=== PATIENT | male | born 1990 | race Hispanic/Latino ===

== ENCOUNTER 2019-10-20 14:05 | Emergency (ER) | payer SELFPAY ==
[2019-10-20] MEDS ORDERED: TRAMADOL HCL 50 MG TAB ONE (15:15)
[2019-10-20] MEDS ORDERED: TETANUS & DIPHTHERIA TOX,ADULT 0.5 ML VIAL ONE (15:16)
[2019-10-20] MEDS ORDERED: HYDROMORPHONE HCL 1 MG/ML INJ ONE (16:01)
[2019-10-20] MEDS ORDERED: ONDANSETRON 4 MG/2 ML VIAL ONE (16:01)
--- NOTE | 2019-10-20 16:05 | RAD REPORT ---
EXAM DESCRIPTION: RAD - Hand Right 3 View - 10/20/2019 3:45 pm CLINICAL HISTORY: Right hand pain status post injury FINDINGS: Soft tissue amputation adjacent to the first terminal tuft No fracture or dislocation
--- NOTE | 2019-10-20 16:07 | EDPHYS ---
Physician Documentation [facility] Name: Severino Davidson Age: 29 yrs Sex: Male : 1990 Arrival Date: 10/20/2019 Time: 14:08 Bed 5 Private MD: ED Physician Srinivas Pena HPI: 10/19 16:03 This 29 yrs old Male presents to ER via Ambulatory with complaints of kb Laceration To Hand. 16:03 The patient has a laceration related to: working, occurred at work, and there are no kb complicating factors. The injury was accidental. The laceration(s) is(are) located on the right thumb. Onset: The symptoms/episode began/occurred just prior to arrival. Associated signs and symptoms: The patient has no apparent associated signs or symptoms. The patient has not experienced similar symptoms in the past. The patient has not recently seen a physician. Pt reports he cut the tip of his thumb off at work. Historical: - Allergies: 14:30 pain killers; sv ROS: 15:57 Constitutional: Negative for fever, chills, and weight loss, Cardiovascular: Negative kb for chest pain, palpitations, and edema, Respiratory: Negative for shortness of breath, cough, wheezing, and pleuritic chest pain, Abdomen/GI: Negative for abdominal pain, nausea, vomiting, diarrhea, and constipation, Back: Negative for injury and pain, Neuro: Negative for headache, weakness, numbness, tingling, and seizure. 15:57 Skin: Positive for avulsion, of the right thumb. Exam: 15:58 Constitutional: This is a well developed, well nourished patient who is awake, alert, kb and in no acute distress. Head/Face: Normocephalic, atraumatic. Chest/axilla: Normal chest wall appearance and motion. Nontender with no deformity. No lesions are appreciated. Cardiovascular: Regular rate and rhythm with a normal S1 and S2. No gallops, murmurs, or rubs. Normal PMI, no JVD. No pulse deficits. Respiratory: Lungs have equal breath sounds bilaterally, clear to auscultation and percussion. No rales, rhonchi or wheezes noted. No increased work of breathing, no retractions or nasal flaring. Abdomen/GI: Soft, non-tender, with normal bowel sounds. No distension or tympany. No guarding or rebound. No evidence of tenderness throughout. MS/ Extremity: Pulses equal, no cyanosis. Neurovascular intact. Full, normal range of motion. Neuro: Awake and alert, GCS 15, oriented to person, place, time, and situation. Cranial nerves II-XII grossly intact. Motor strength 5/5 in all extremities. Sensory grossly intact. Cerebellar exam normal. Normal gait. 15:58 Skin: injury, avulsion(s), A moderate sized of the right thumb, avulsion of tip of finger. Vital Signs: 14:31 BP 132 / 90; Pulse 88; Resp 16; Temp 98; Pulse Ox 100% ; Weight 104.33 kg; Height 5 ft. sv 11 in. (180.34 cm); 14:31 Body Mass Index 32.08 (104.33 kg, 180.34 cm) sv MDM: 14:57 Patient medically screened. kb 15:56 Data reviewed: vital signs, nurses notes. Data interpreted: Pulse oximetry: on room air kb is 100 %. Interpretation: normal. Counseling: I had a detailed discussion with the patient and/or guardian regarding: the historical points, exam findings, and any diagnostic results supporting the discharge/admit diagnosis, radiology results, the need for outpatient follow up, a family practitioner, to return to the emergency department if symptoms worsen or persist or if there are any questions or concerns that arise at home. 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 Exp: em 05/18/2021. Lot #: [id number]. } Route: IM; Site: left deltoid; 17:00 Follow up: Response: No adverse reaction em 15:12 Drug: traMADol 50 mg Route: PO; em 17:00 Follow up: Response: No adverse reaction em Disposition: 10/20 10:30 Co-signature as Attending Physician, Srinivas Pena MD I agree with the assessment and franco plan of care. Disposition: 10/20/19 16:06 Discharged to Home. Impression: Laceration without foreign body of right thumb with damage to nail - avulsion. - Condition is Stable. - Discharge Instructions: Deep Skin Avulsion. - Medication Reconciliation Form, Thank You Letter, Antibiotic Education, Prescription Opioid Use form. - Follow up: Emergency Department; When: As needed; Reason: Worsening of condition. Follow up: Private Physician; When: 2 - 3 days; Reason: Recheck today's complaints, Continuance of care, Re-evaluation by your physician. Signatures: Dispatcher [employer] EDRebekah Hirsch, ABEL-C TRIAGE REGISTER NURSE-Priscila Schroeder, JENNIFER RN Srinivas Bonilla MD MD cha Munoz, Edgar, RN RN em Corrections: (The following items were deleted from the chart) 10/19 17:07 16:06 10/20/2019 16:06 Discharged to Home. Impression: Laceration without foreign body em of right thumb with damage to nail - avulsion. Condition is Stable. Forms are Medication Reconciliation Form, Thank You Letter, Antibiotic Education, Prescription Opioid Use. Follow up: Emergency Department; When: As needed; Reason: Worsening of condition. Follow up: Private Physician; When: 2 - 3 days; Reason: Recheck today's complaints, Continuance of care, Re-evaluation by your physician. kb
--- NOTE | 2019-10-20 16:07 | ER ---
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 "I sv took a good chunk off of my thumb.". Coronavirus screen: Patient denies a cough. Patient denies shortness of breath or difficulty breathing. Patient denies measured and/or subjective temperature greater than 100.4F prior to today's visit. Patient denies travel on a cruise ship or to a country the [facility] currently lists as an affected area. Patient denies contact with known and/or suspected case of COVID-19. Proceed with normal triage. Ebola Screen: No symptoms or risks identified at this time. Complicating Factors: There are no complicating factors for this patient. Risk Assessment: Do you want to hurt yourself or someone else? Patient reports no desire to harm self or others. Onset of symptoms was October 20, 2019. 14:28 Method Of Arrival: Ambulatory sv 14:28 Acuity: PARAMJIT 2 sv 14:31 Initial Sepsis Screen: Does the patient meet any 2 criteria? No. Patient's initial sv sepsis screen is negative. Does the patient have a suspected source of infection? No. Patient's initial sepsis screen is negative. Triage Assessment: 14:28 General: Appears in no apparent distress. uncomfortable, Behavior is calm, cooperative, sv appropriate for age. Pain: Complains of pain in right thumb. Neuro: Level of Consciousness is awake, alert, obeys commands, Oriented to person, place, time, situation, Gait is steady. Respiratory: Respiratory effort is even, unlabored. Historical: - Allergies: 14:30 pain killers; sv Screenin:00 Abuse screen: Denies threats or abuse. Nutritional screening: No deficits noted. em Tuberculosis screening: No symptoms or risk factors identified. Fall Risk None identified. Assessment: 15:00 General: Appears in no apparent distress. comfortable, Behavior is calm, cooperative, em appropriate for age. Pain: Complains of pain in right thumb. Neuro: Level of Consciousness is awake, alert, obeys commands, Oriented to place, time, situation, Appropriate for age. Cardiovascular: Capillary refill < 3 seconds Patient's skin is warm and dry. Respiratory: Airway is patent Respiratory effort is even, unlabored, Respiratory pattern is regular, symmetrical. Derm: Skin is intact, is healthy with good turgor, Skin is pink, warm \\T\\ dry. Musculoskeletal: Capillary refill < 3 seconds, Range of motion: intact in all extremities. Injury Description: Laceration sustained to right thumb is clean, 0.5 to 2.5 cm long, was sustained less than 30 minutes ago. is bleeding a small amount. 16:00 Reassessment: Patient appears in no apparent distress at this time. Patient and/or em family updated on plan of care and expected duration. Pain level reassessed. Patient is alert, oriented x 3, equal unlabored respirations, skin warm/dry/pink. Vital Signs: 14:31 BP 132 / 90; Pulse 88; Resp 16; Temp 98; Pulse Ox 100% ; Weight 104.33 kg; Height 5 ft. sv 11 in. (180.34 cm); 14:31 Body Mass Index 32.08 (104.33 kg, 180.34 cm) sv ED Course: 14:08 Patient arrived in ED. bp1 14:29 Triage completed. sv 14:30 Arm band placed on. sv 14:36 Mason Perez, JENNIFER is Primary Nurse. em 14:56 Rebekah Jc FNP-C is PHCP. kb 14:56 Srinivas Pena MD is Attending Physician. kb 15:45 Hand Right 3 View XRAY In Process Unspecified. EDMS 16:00 Patient has correct armband on for positive identification. Bed in low position. Side em rails up X2. Pulse ox on. NIBP on. 17:00 No provider procedures requiring assistance completed. Patient did not have IV access em during this emergency room visit. 17:00 Wound care: to laceration located on right thumb was cleaned with soap and water, em dressed with Neosporin, 4X4s, Kerlix, Patient tolerated well. 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 Lot #: [id number]. } Route: IM; Site: left deltoid; 17:00 Follow up: Response: No adverse reaction em 15:12 Drug: traMADol 50 mg Route: PO; em 17:00 Follow up: Response: No adverse reaction em Outcome: 16:06 Discharge ordered by . ignacio 17:00 Discharged to home ambulatory. em 17:00 Condition: good 17:00 Discharge instructions given to patient, Instructed on discharge instructions, follow up and referral plans. Demonstrated understanding of instructions, follow-up care. 17:07 Patient left the ED. 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 sv sv 14:32 14:31 104.33 kg; Height 5 ft. 11 in.; BMI: 32.0; sv sv
[2019-10-20 17:35] VITALS: BP 132/90; TEMP 98; O2SAT 100
== END 2019-10-20 17:07 | disposition home or self-care (01) ==
LOC: ER 14:05
DX: S61.111A Laceration without foreign body of right thumb with damage to nail, initial encounter (principal); W45.8XXA Other foreign body or object entering through skin, initial encounter; Y93.9 Activity, unspecified; Y92.89 Other specified places as the place of occurrence of the external cause; Y99.8 Other external cause status; Z23 Encounter for immunization; Z88.6 Allergy status to analgesic agent
CPT/HCPCS: 90471; 90714; 99284; J1170; J2405